=== PATIENT | female | born 1985 | race African-American/Black ===

== ENCOUNTER 2017-07-04 23:47 | Emergency (ER) | payer MEDICAID ==
[~2017-07-04] VITALS: Ht 154.9 cm; Wt 45.0 kg
[2017-07-05] MEDS ORDERED: KETOROLAC 30MG/ML VIAL IV STA (10:27)
[2017-07-05] MEDS ORDERED: ONDANSETRON HCL 4MG/2ML VIAL IV STA (10:27)
[2017-07-05] MEDS ORDERED: SODIUM CHLORIDE 0.9% 1,000 ML IV ONE (10:27)
[2017-07-05] MEDS ORDERED: FAMOTIDINE 20MG/2ML VIAL IV ONE (10:30)
[2017-07-05 10:52] LABS: BASOPHILS % 0.4 % (0.0-2.0); HEMATOCRIT. 42.3 % (36.0-48.0); HEMOGLOBIN. 14.5 g/dL (12.0-16.0); LYMPHOCYTES % 10.5 % (20.0-50.0); MEAN CORPUSCULAR HEMOGLOBIN 32.3 pg (28.0-32.0); MEAN CORPUSCULAR VOLUME 94.1 fL (81.0-99.0); MEAN PLATELET VOLUME 7.4 fl (7.4-10.4); MONOCYTES % 9.4 % (2.0-8.0); NEUTROPHILS % 79.7 % (40.0-76.0); PLATELET 292 x1000/uL (130-400)
[2017-07-05 10:59] LABS: PROTHROMBIN TIME 9.9 sec (9.4-11.6)
[2017-07-05 11:08] LABS: CARBON DIOXIDE 14 mEq/L (21-32); CHLORIDE 93 mEq/L (98-107)
[2017-07-05] MEDS ORDERED: MAGNESIUM/ALUMINUM HYDROXIDE/SIMETHICONE 30ML UDC PO ONE (12:15)
[2017-07-05] MEDS ORDERED: VISCOUS LIDOCAINE 2% 15 ML UDC PO ONE (12:15)
[2017-07-05 12:25] LABS: CLARITY URINE CLOUDY (CLEAR); COLOR URINE RED (YELLOW); KETONES URINE 4+ (NEGATIVE); LEUKOCYTE ESTERASE URINE 2+ (NEGATIVE); NITRITE URINE NEGATIVE (NEGATIVE); OCCULT BLOOD URINE 3+ (NEGATIVE); PROTEIN URINE 3+ (NEGATIVE); SPECIFIC GRAVITY URINE 1.022 (1.005-1.030); UROBILINOGEN URINE 0.2 E.U./dL (0.2-1.0)
[2017-07-05 13:40] VITALS: BP 139/85
== END 2017-07-05 15:51 | disposition home or self-care (01) ==
LOC: ER 23:47
DX: R07.89 Other chest pain (principal); N39.0 Urinary tract infection, site not specified; E86.0 Dehydration; D72.829 Elevated white blood cell count, unspecified; E87.2 Acidosis; F17.200 Nicotine dependence, unspecified, uncomplicated; F12.10 Cannabis abuse, uncomplicated
CPT/HCPCS: 36415; 71045; 80053; 81001; 83690; 85025; 85610; 87086; 93005; 96361; 96374; 96375; 99285; J1885; J2405; J3490; J7030; Z7610

== ENCOUNTER 2024-08-18 08:37 | Emergency (ER) | payer MEDICAID ==
[~2024-08-18] VITALS: Ht 154.9 cm; Wt 59.0 kg
[2024-08-18 08:39] VITALS: BP 150/104; PULSE 112; RESP 18; TEMP 36.6; O2SAT 100
[2024-08-18] MEDS ORDERED: ONDANSETRON 4MG ODT PO STA (09:12)
[2024-08-18] MEDS ORDERED: KETOROLAC 30MG/ML VIAL IM STA (09:12)
[2024-08-18 10:05] LABS: BASOPHILS % 0.1 % (0.0-2.0); DIFFERENTIAL COMMENT 0; HEMATOCRIT. 40.9 % (36.0-48.0); HEMOGLOBIN. 13.6 g/dL (12.0-16.0); LYMPHOCYTES % 9.6 % (20.0-50.0); MEAN CORPUSCULAR HEMOGLOBIN 33.8 pg (28.0-32.0); MEAN CORPUSCULAR HGB CONC 33.3 g/dL (31.0-37.0); MEAN CORPUSCULAR VOLUME 101.4 fL (81.0-99.0); MEAN PLATELET VOLUME 8.2 fl (7.4-10.4); MONOCYTES % 8.5 % (2.0-8.0); NEUTROPHILS % 81.8 % (40.0-76.0); PLATELET 348 x1000/uL (130-400); RED BLOOD CELL COUNT 4.03 mill/uL (4.2-5.4); RED CELL DISTRIBUTION WIDTH 14.4 % (11.6-14.6); WHITE BLOOD COUNT 17.4 x1000/uL (4.5-11.0)
[2024-08-18 10:11] LABS: CHLORIDE 99 mEq/L (98-107); POTASSIUM 4.3 mEq/L (3.5-5.1); SODIUM 138 mEq/L (136-145)
[2024-08-18 10:12] LABS: HCG SCREEN NEGATIVE
[2024-08-18 10:13] LABS: CALCIUM 9.7 mg/dL (8.7-10.4); CARBON DIOXIDE 10 mEq/L (21-32)
[2024-08-18 10:18] LABS: CREATININE 0.9 mg/dL (0.6-1.0); GLUCOSE 92 mg/dL (70-105); UREA NITROGEN BLOOD 9 mg/dL (9-23)
[2024-08-18 10:20] LABS: ALANINE AMINOTRANSFERASE 36 IU/L (10-49); ALBUMIN 5.1 g/dL (3.2-4.8); ASPARTATE AMINOTRANSFERASE 74 IU/L (<34); BILIRUBIN DIRECT 0.1 mg/dL (<=3.0); BILIRUBIN TOTAL 0.4 mg/dL (0.1-1.0); PROTEIN TOTAL 7.8 g/dL (6.0-8.3)
[2024-08-18] MEDS: KETOROLAC 30MG/ML VIAL IM NR (10:29)
[2024-08-18] MEDS: DICYCLOMINE HCL 10MG/ML 2ML VIAL IM STA (10:29)
[2024-08-18] MEDS: ONDANSETRON 4MG ODT PO NR (10:30)
[2024-08-18] MEDS ORDERED: OMEP20TA23 MT (12:20)
[2024-08-18] MEDS ORDERED: ONDA-239 PO (12:20)
== END 2024-08-18 12:45 | disposition home or self-care (01) ==
LOC: ER 08:37
DX: R11.2 Nausea with vomiting, unspecified (principal); F12.10 Cannabis abuse, uncomplicated
CPT/HCPCS: 80076; 80048; 84703; 83690; 85025; 36415; 71045; 96372; 99284; Q0162; J0500; J1885; Z7610